=== PATIENT | female | born 1970 ===

== ENCOUNTER 2017-05-04 16:31 | Emergency (ER) | payer MEDICAID, OTHER ==
[2017-05-04 16:31] VITALS: BMI 26.6
[2017-05-04 16:41] VITALS: BP 136/56; PULSE 73; RESP 18; TEMP 98.3; O2SAT 99
--- NOTE | 2017-05-04 17:40 | ED PDOC ---
HPI: General Adult Time Seen by Provider: 05/04/17 16:44 Chief Complaint (Nursing): Cough, Cold, Congestion History Per: Patient Additional Complaint(s): Pt. is requesting a dose of methadone as she has been using heroin daily. Also reports she's been coughing for > 5 years. Pt. states she takes heroin for pain chronic back pain control. Denies dysuria, hematuria, incontinence, tremors, fever, SOB, chest pain, SI/HI, hallucinations, anxiety. Past Medical History Reviewed: Historical Data, Nursing Documentation, Vital Signs Vital Signs: Last Vital Signs Temp 98.3 F 05/04/17 16:39 Pulse 73 05/04/17 16:39 Resp 18 05/04/17 16:39 BP 136/56 L 05/04/17 16:39 Pulse Ox 99 05/04/17 16:39 - Medical History PMH: Anxiety, Asthma, Bipolar Disorder, Bronchitis, Depression, Gastritis, Hepatitis (C), HIV, HTN, Kidney Stones, Malignancy (Uterine), Chronic Kidney Disease, Schizophrenia, Seizures, Sexually Transmitted Disease - Surgical History Surgical History: Cholecystectomy - Family History Family History: States: Unknown Family Hx - Social History Current smoker - smoking cessation education provided: Yes SMOKER/PACKS PER DAY:: 1 Drugs: Opiates - Immunization History Hx Tetanus Toxoid Vaccination: No Hx Influenza Vaccination: No Hx Pneumococcal Vaccination: No - Home Medications Home Medications: Ambulatory Orders Medication Instructions Recorded Cephalexin [Keflex] 500 mg PO TID #21 capsule 03/26/17 Acetaminophen [Tylenol] 325 mg PO Q6 PRN #30 tab 04/20/17 - Allergies Allergies/Adverse Reactions: Allergies Allergy/AdvReac Type Severity Reaction Status Date / Time ibuprofen [From Motrin] Allergy Verified 03/25/17 19:27 Review of Systems ROS Statement: Except As Marked, All Systems Reviewed And Found Negative Respiratory: Positive for: Cough Musculoskeletal: Positive for: Back Pain Physical Exam - Reviewed Nursing Documentation Reviewed: Yes Vital Signs Reviewed: Yes - Physical Exam Appears: Positive for: Well, Non-toxic, No Acute Distress Head Exam: Positive for: ATRAUMATIC, NORMAL INSPECTION, NORMOCEPHALIC Skin: Positive for: Normal Color, Warm. Negative for: Rash Eye Exam: Positive for: EOMI, Normal appearance, PERRL ENT: Positive for: Normal ENT Inspection Neck: Positive for: Normal, Painless ROM Cardiovascular/Chest: Positive for: Regular Rate, Rhythm Respiratory: Positive for: CNT, Normal Breath Sounds Gastrointestinal/Abdominal: Positive for: Normal Exam, Bowel Sounds, Soft Back: Positive for: Normal Inspection Extremity: Positive for: Normal ROM Neurologic/Psych: Positive for: Alert, Oriented - ECG O2 Sat by Pulse Oximetry: 99 - Progress ED Course And Treament: Tylenol 975mg PO given. Of note, pt. is currently under arrest. Disposition - Clinical Impression Clinical Impression: Cough, Chronic back pain - Patient ED Disposition Is Patient to be Admitted: No - Disposition Disposition: Discharged/Transfer to Law Enforcement Disposition Time: 17:41 Condition: STABLE Additional Instructions: Patient is medically and psychiatrically cleared for incarceration. Instructions: How to Stop Smoking (ED), Chronic Cough (ED), Chronic Back Pain ( ED) Forms: [facility] (Bulgarian) Print Language: BELARUSIAN
== END 2017-05-04 17:32 | disposition home or self-care (01) ==
LOC: H.ER 16:31
DX: R05 Cough (principal); M54.9 Dorsalgia, unspecified; G89.29 Other chronic pain

== ENCOUNTER 2017-05-10 14:33 | Emergency (ER) | payer MEDICAID, OTHER ==
[2017-05-10 14:34] VITALS: BMI 26.6
[2017-05-10 14:38] VITALS: BP 138/89; PULSE 119; RESP 20; TEMP 98.8; O2SAT 95
--- NOTE | 2017-05-10 15:00 | ED PDOC ---
HPI: General Adult Time Seen by Provider: 05/10/17 14:37 Chief Complaint (Nursing): Syncope Chief Complaint (Provider): Trip and fall, fenies pain History Per: Patient History/Exam Limitations: no limitations Have you had recent travel within the past 21 days to any of the following countries: [place], [place], [place] or [place]?: No Additional Complaint(s): Pt states she was brought by EMS after a trip and fall. Pts daughter said she called because she wants her mother to get help for drinking. Pt reports drinking earlier this morning but denies wanting to get help. Pt denies N/V/D. Pt denies chest pain. Past Medical History Reviewed: Historical Data, Nursing Documentation, Vital Signs Vital Signs: Last Vital Signs Temp 98.8 F 05/10/17 14:35 Pulse 119 H 05/10/17 14:35 Resp 20 05/10/17 14:35 BP 138/89 05/10/17 14:35 Pulse Ox 95 05/10/17 14:35 - Medical History PMH: Anxiety, Asthma, Bipolar Disorder, Bronchitis, Depression, Gastritis, Hepatitis (C), HIV, HTN, Kidney Stones, Malignancy (Uterine), Chronic Kidney Disease, Schizophrenia, Seizures, Sexually Transmitted Disease - Surgical History Surgical History: Cholecystectomy - Family History Family History: States: Unknown Family Hx - Living Arrangements Living Arrangements: With Family - Social History Current smoker - smoking cessation education provided: No Alcohol: None Drugs: Denies - Immunization History Hx Tetanus Toxoid Vaccination: No Hx Influenza Vaccination: No Hx Pneumococcal Vaccination: No - Home Medications Home Medications: Ambulatory Orders Medication Instructions Recorded Trazodone HCl 100 mg PO DAILY 05/08/17 oxyCODONE/Acetaminophen [Percocet 1 tab PO TID PRN #9 tab 05/09/17 5/325 mg Tab] - Allergies Allergies/Adverse Reactions: Allergies Allergy/AdvReac Type Severity Reaction Status Date / Time ibuprofen [From Motrin] Allergy RASH Verified 05/10/17 14:35 Review of Systems ROS Statement: Except As Marked, All Systems Reviewed And Found Negative Gastrointestinal: Negative for: Nausea, Vomiting, Abdominal Pain Genitourinary Female: Negative for: Dysuria, Frequency Physical Exam - Reviewed Nursing Documentation Reviewed: Yes Vital Signs Reviewed: Yes - Physical Exam Appears: Positive for: Well, Non-toxic, No Acute Distress Head Exam: Positive for: ATRAUMATIC, NORMAL INSPECTION, NORMOCEPHALIC Skin: Positive for: Normal Color, Warm, DRY Eye Exam: Positive for: EOMI, Normal appearance, PERRL ENT: Positive for: Normal ENT Inspection Neck: Positive for: Normal, Painless ROM Cardiovascular/Chest: Positive for: Regular Rate, Rhythm Respiratory: Positive for: Normal Breath Sounds. Negative for: Accessory Muscle Use, Respiratory Distress Gastrointestinal/Abdominal: Positive for: Normal Exam, Bowel Sounds, Soft Back: Positive for: Normal Inspection Extremity: Positive for: Normal ROM Neurologic/Psych: Positive for: Alert, Oriented - ECG O2 Sat by Pulse Oximetry: 95 Disposition - Clinical Impression Clinical Impression: Fall, Alcohol abuse - Patient ED Disposition Is Patient to be Admitted: No - Disposition Disposition: Routine/Home Disposition Time: 15:02 Condition: GOOD Instructions: Fall Prevention (ED)
== END 2017-05-10 15:10 | disposition home or self-care (01) ==
LOC: H.ER 14:33
DX: R55 Syncope and collapse (principal); W19.XXXA Unspecified fall, initial encounter; Y92.89 Other specified places as the place of occurrence of the external cause; F10.129 Alcohol abuse with intoxication, unspecified